=== PATIENT | female | born 1995 | race Caucasian/White ===

== ENCOUNTER 2019-08-13 00:31 | Inpatient (IN) ==
[2019-08-13] MEDS ORDERED: Naloxone 0.4 MG/ML INJ IVP PRN (00:47)
[2019-08-13] MEDS ORDERED: Ondansetron 4 MG/2 ML VIAL IVP PRN (00:47)
[2019-08-13] MEDS ORDERED: Famotidine 20 MG/2 ML VIAL IVP PRN (00:47)
[2019-08-13] MEDS ORDERED: Lidocaine 1% 20 ML MDV INFILT PRN (00:47)
[2019-08-13] MEDS ORDERED: Metoclopramide 10 MG/2 ML VIAL IVP PRN (00:47)
[2019-08-13] MEDS ORDERED: Penicillin G Potassium 5,000,000 UNIT in 0.9 % Sodium Chloride Mini Bag 100 ML IVPB ONE (00:49)
[2019-08-13] MEDS ORDERED: Epidural Premix (fent/bupiv) 110 ML EP SCH (01:00)
[2019-08-13] MEDS ORDERED: Ringers Solution, Lactated 1,000 ML IVC SCH (01:00)
[2019-08-13 01:29] LABS: Amphetamine Screen,Urine Negative ng/mL (Cutoff=1000); Barbiturate Screen,Urine Negative ng/mL (Cutoff=200); Benzodiazepines Screen,Urine Negative ng/mL (Cutoff=200); Cannabinoid Screen,Urine Negative ng/mL (Cutoff = 50); Cocaine Screen,Urine Negative ng/mL (Cutoff= 300); Opiate Screen,Urine Negative ng/mL (Cutoff=300); Phencyclidine Screen,Urine Negative ng/mL (Cutoff=25)
[2019-08-13 01:52] LABS: Basophils % 0.1 %; Eosinophils % 0.4 %; Hematocrit 32.9 % (35.3-44.9); Hemoglobin 10.8 g/dL (11.5-15.4); Immature Granulocytes % 0.4 % (0-4); Lymphocytes # 1.9 K/mcL (0.6-4.6); Lymphocytes % 20.5 %; Mean Corpuscular HGB Conc 32.8 g/dL (31.6-35.5); Mean Corpuscular Hemoglobin 26.2 pg (28.0-33.3); Mean Corpuscular Volume 79.7 fL (83.0-100.0); Mean Platelet Volume 9.6 fL (9.4-12.4); Monocytes # 0.8 K/mcL (0.0-1.3); Monocytes % 8.7 %; Neutrophils # 6.4 K/mcL (1.6-8.9); Platelet Count 318 K/mcL (140-400); Red Blood Count 4.13 M/mcL (3.82-4.97); Red Cell Distribution Width 14.5 % (11.5-14.5); Segmented Neutrophils % 69.9 %; White Blood Count 9.1 K/mcL (4.3-11.1)
[2019-08-13] MEDS ORDERED: Penicillin G Potassium 2,500,000 UNIT in 0.9 % Sodium Chloride 100 ML IVPB SCH (04:00)
[2019-08-13] MEDS ORDERED: Oxytocin 20 units/ LR 1000 mL 20 UNIT/1,000 ML BAG IVC ONE (04:57)
[2019-08-13] MEDS ORDERED: Ibuprofen 600 MG TABLET PO PRN (08:06)
[2019-08-13] MEDS ORDERED: *HR* HYDROcodone/Acet 5/325 mg TABLET PO PRN (08:06)
[2019-08-13] MEDS ORDERED: Lanolin 7 G OINT...G. TP PRN (08:06)
[2019-08-13] MEDS ORDERED: Acetaminophen 325 MG TABLET PO PRN (08:06)
[2019-08-13] MEDS ORDERED: Oxytocin 20 units/ LR 1000 mL 20 UNIT/1,000 ML BAG IVC SCH (08:06)
[2019-08-13] MEDS ORDERED: Benzocaine/Menthol 56 GM AEROSOL SPRAY TP PRN (08:06)
[2019-08-13] MEDS: Prenatal Vit/FA 1 EACH TABLET PO SCH (09:04)
[2019-08-14] MEDS: Prenatal Vit/FA 1 EACH TABLET PO SCH (08:46)
[2019-08-14 09:23] VITALS: BP 117/79
== END 2019-08-14 12:40 | disposition home or self-care (01) | DRG 807 ==
LOC: 1NENULAB → OBSVTOIN 00:31 → 1NENUOBS 08:07
PROVIDERS: ADMIT Advanced Practice Midwife; ATTEND Advanced Practice Midwife